=== PATIENT | male | born 1935 | race Caucasian/White ===

== ENCOUNTER 2016-11-22 12:07 | Observation (INO) ==
[2016-11-22 12:40] LABS: MANUAL DIFF NEEDED? NO
--- NOTE | 2016-11-22 12:47 | Diag Imaging Result Doc PS360 ---
EXAM: CHEST-PORTABLE HISTORY: stroke like symptoms TECHNIQUE: Erect AP portable at 1235 COMMENT: There is no appreciable change since previous study of 11/19/2015, although the left costophrenic angle is not included on the current study. IMPRESSION: Stable chest. Electronically signed by Jed Adams 11/22/2016 12:44 PM
[2016-11-22 12:48] LABS: BASO% 0.4 % (0.0-0.8); EOS# 0.36 X1000 (0.0-0.7); HEMATOCRIT 47.5 % (42.0-52.0); HEMOGLOBIN 15.7 g/dL (14.0-18.0); LYMPH% 16.6 % (20.5-51.1); MCH 31.4 PG (27-31); MCHC 33.1 g/dL (33-37); MONO# 0.73 X1000 (0.11-0.59); MONO% 10.1 % (1.7-9.3); MPV 9.9 FL (7.4-10.4); NEUT% 67.9 % (42.2-75.2); PLT 267 X1000 (130-400)
[2016-11-22 12:52] LABS: INR 1.13; PTT 29.1 Seconds (22.0-36.0)
[2016-11-22 13:02] LABS: AGAP 10; ALKALINE PHOSPHATASE 79 U/L (32-122); BUN 30 mg/dL (8-22); CALCIUM 9.9 mg/dL (8.8-10.2); CHLORIDE 104 mmol/L (98-107); COSMO 283; GOT 17 U/L (10-34); GPT 12 U/L (10-44); POTASSIUM 4.5 mmol/L (3.5-5.1); SODIUM 139 mmol/L (136-145); TCO2 25 mmol/L (25-35); TOTAL BILIRUBIN 1.11 mg/dL (0.20-1.00); TOTAL PROTEIN 6.8 g/dL (6.3-8.3)
[2016-11-22 13:19] LABS: URINE CULTURE NEEDED? NO; URINE MICRO REVIEW NEEDED? NO; URINE SOURCE CLEAN CATCH
[2016-11-22 13:28] LABS: BILIRUBIN URINE NEGATIVE (NEGATIVE); BLOOD URINE NEGATIVE (NEGATIVE); COLOR YELLOW; GLUCOSE URINE NEGATIVE (NEGATIVE); LEUKOCYTES URINE NEGATIVE (NEGATIVE); NITRITE URINE NEGATIVE (NEGATIVE); PH URINE 5.5; PROTEIN URINE 30 mg/dL (NEGATIVE); TURBIDITY URINE CLEAR (CLEAR); UR EPITHELIAL CELLS <10 /HPF (<10); URINE BACTERIA NEGATIVE /HPF; URINE RBC <10 /HPF (<10); URINE WBC <10 /HPF (<10); UROBILINOGEN URINE 2 mg/dL (NORMAL)
--- NOTE | 2016-11-22 13:29 | Diag Imaging Result Doc PS360 ---
EXAM: HEAD W/O CONTRAST HISTORY: stroke like symptoms TECHNIQUE: CT of the head without contrast COMMENT: There is dense calcification in the right vertebral artery and both internal carotid arteries. There is generalized cerebral and cerebellar atrophy. There are number of lacunar lesions present in the cerebellum particularly the left upper hemisphere where there is a lacunar lucency measuring excess of 2.5 cm. No evidence of mass effect bleed or abnormal extra-axial fluid collection is present. The visualized paranasal sinuses are clear. The calvarium is intact. IMPRESSION: Cerebral atrophy with old ischemic changes in the posterior fossa primarily. Further evaluation with MRI may be desirable. Electronically signed by Jed Adams 11/22/2016 1:27 PM
[2016-11-22 13:33] LABS: UR AMPHETAMINES QUAL NONE DETECTED (NONE DETECT); UR BARBITUATES QUAL NONE DETECTED (NONE DETECT); UR BENZODIAZEPIN QUAL NONE DETECTED (NONE DETECT); UR CANNABINOIDS QUAL NONE DETECTED (NONE DETECT); UR COCAINE QUAL NONE DETECTED (NONE DETECT); UR METHADONE QUAL NONE DETECTED (NONE DETECT); UR OPIATES QUAL NONE DETECTED (NONE DETECT); UR OXYCODONE QUAL NONE DETECTED (NONE DETECT); UR PCP QUAL NONE DETECTED (NONE DETECT)
--- NOTE | 2016-11-22 15:47 | PROVIDER DOCUMENTATION ---
This chart was entered by Attila Murray Scribe, acting as scribe for Chandan Miramontes MD. HPI-Neurological Disorder - General Chief Complaint: Stroke-Like Symptoms Stated Complaint: STROKE LIKE SX Time Seen by Provider: 11/22/16 14:51 Source: patient Allergies/Adverse Reactions: Patient Allergies Allergy/AdvReac Type Severity Reaction Status Date / Time promethazine HCl * Allergy Unknown Verified 11/19/15 10:35 [From Phenergan] Home Medications: Home Medication List Medication Instructions Recorded Confirmed Last Taken Type Furosemide [Lasix] 20 mg PO DAILY #20 tablet 11/19/15 11/22/16 11/21/16 07:00 Rx 20 MG Warfarin Sodium [Coumadin] 5 mg PO DAILY 11/19/15 11/22/16 11/21/16 07:00 History 5 MG - History of Present Illness-Neuro Nature of Presenting Problem: Patient is a 81 y/o M that presents to the ER after having an episode of left foot numbness and hand numbness. patient was driving and couldn't hit the brake. He had symptoms previously in which he had slurred speech. Symptoms are gone now. Severity: reports: moderate Onset/Duration: reports: abrupt, this afternoon Timing: reports: gone now Context: reports: paresthesia. denies: head injury, impaired speech, facial droop Character of Altered Mental Status: reports: N/A Character of Deficits: reports: new weakness New weakness or altered sensation location:: reports: LUE, LLE Gait Baseline: walks without assistance Associated Symptoms: reports: numbness in legs/feet. denies: headache, decreased ability to walk or stand, fever/chills, slurred speech, vomiting Similar Symptoms Previously?: Yes Recently seen or treated by another doctor?: No Review of Systems - Adult - REVIEW OF SYSTEMS - ADULT Constitutional: denies: chills, fever Eyes: reports: no symptoms reported Ears, Nose, Mouth & Throat: reports: no symptoms reported Cardiovascular: denies: chest pain, orthopnea, palpitations Respiratory: denies: cough, shortness of breath, wheezing Gastrointestinal: denies: abdominal pain, nausea, vomiting Genitourinary: reports: no symptoms reported Musculoskeletal: reports: no symptoms reported Integumentary: reports: no symptoms reported Neurological: reports: numbness, paresthesia. denies: dizziness/vertigo, headache/migraines, syncope Psychiatric: reports: no symptoms reported Endocrine: reports: no symptoms reported Hematologic/Lymphatic: reports: no symptoms reported Allergic/Immunologic: reports: no symptoms reported All Other Systems: Reviewed and Negative Past History - Adult - PAST MEDICAL HISTORY-ADULT Review of Records: reports: Old Records Reviewed, Nursing Assessment Review, Medications Reviewed Major Childhood Illnesses: reports: denies history Cardiovascular: reports: A-Fib, HTN Gastrointestinal: reports: GERD - PRIOR SURGERIES/PROCEDURES Surgical/Procedure History: reports: hernia repair, other (prostectomy) - IMMUNIZATION STATUS Childhood Immunizations: See Nurse Assessment Flu Vaccine: See Nurse Assessment - FAMILY HISTORY Family History: reviewed, not pertinent - SOCIAL HISTORY Smoking: quit greater than 1 year, cigarettes Living Situation: family Physical Exam- Neurological - Physical Exam-Neuro Initial Vital Signs Reviewed: Yes General Appearance: alert, no apparent distress Eye Exam: bilateral eye: normal inspection, PERRL HENMT: normocephalic/atraumatic, moist mucous membranes, normal ENT inspection Head Injury: no evidence of injury. 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: normal hearing, normal speech, PERRL Motor/Sensory: no motor deficit, no sensory deficit, no pronator drift Neurologic: transfer engineer II-XII nml as tested, no motor/sensory deficits Integumentary: normal color, normal turgor, warm/dry Psych/Mental Status: normal mood/affect, normal thought content, normal thought process, oriented x 3 - Glascow Coma Scale Best Eye Response: (4) open spontaneously Best Verbal Response: (5) oriented Best Motor Response: (6) obeys commands Total Glascow Score: 15 Progress - PLAN OF CARE/RESULTS Progress/Plan/Lab Results: Vital Signs - 8 hr 11/22/16 12:13 11/22/16 14:29 Pulse Rate 98 H 97 H Respiratory Rate 18 18 Blood Pressure 141/91 142/94 O2 Sat by Pulse Oximetry 98 97 Laboratory Results - last 24 hr 11/22/16 11/22/1617 12:28 12:28 12:28 WBC 7.25 RBC 5.00 Hgb 15.7 Hct 47.5 MCV 95.0 MCH 31.4 H MCHC 33.1 RDW Std Deviation 12.9 Plt Count 267 MPV 9.9 Neut % (Auto) 67.9 Lymph % (Auto) 16.6 L [place] % (Auto) 10.1 H Eos % (Auto) 5.0 Baso % (Auto) 0.4 Neut # (Auto) 4.93 Lymph # (Auto) 1.20 [place] # (Auto) 0.73 H Eos # (Auto) 0.36 Baso # (Auto) 0.03 PT 12.0 H INR 1.13 PTT (Actin FS) 29.1 Sodium 139 Potassium 4.5 Chloride 104 Carbon Dioxide 25 Anion Gap 10 BUN 30 H Creatinine 0.9 Estimated GFR/1.73 m2 > 60 BUN/Creatinine Ratio 33 Glucose 89 Calculated Osmolality 283 Calcium 9.9 Total Bilirubin 1.11 H AST 17 ALT 12 Alkaline Phosphatase 79 Troponin T Total Protein 6.8 Albumin 4.0 Globulin 2.8 Albumin/Globulin Ratio 1.4 Urine Source Urine Color Urine Turbidity Urine pH Ur Specific [place] Urine Protein Ur Glucose (Stick) Ur Ketones (Stick) Urine Blood Urine Nitrite Urine Bilirubin Urobilinogen Dipstick Urine Leukocytes Urine WBC (Auto) Urine RBC (Auto) U Epithel Cells (Auto) Urine Bacteria (Auto) Urine Opiates Screen Ur Oxycodone Screen Ur Methadone, Qual Ur Barbiturates Screen Ur Phencyclidine Scrn Ur Amphetamines Screen U Benzodiazepines Scrn Urine Cocaine Screen U Cannabinoids Screen 11/22/16 11/22/16 11/22/16 12:28 13:10 13:10 WBC RBC Hgb Hct MCV MCH MCHC RDW Std Deviation Plt Count MPV Neut % (Auto) Lymph % (Auto) [place] % (Auto) Eos % (Auto) Baso % (Auto) Neut # (Auto) Lymph # (Auto) [place] # (Auto) Eos # (Auto) Baso # (Auto) PT INR PTT (Actin FS) Sodium Potassium Chloride Carbon Dioxide Anion Gap BUN Creatinine Estimated GFR/1.73 m2 BUN/Creatinine Ratio Glucose Calculated Osmolality Calcium Total Bilirubin AST ALT Alkaline Phosphatase Troponin T < 0.010 Total Protein Albumin Globulin Albumin/Globulin Ratio Urine Source CLEAN CATCH Urine Color YELLOW Urine Turbidity CLEAR Urine pH 5.5 Ur Specific [place] 1.030 Urine Protein 30 A Ur Glucose (Stick) NEGATIVE Ur Ketones (Stick) NEGATIVE Urine Blood NEGATIVE Urine Nitrite NEGATIVE Urine Bilirubin NEGATIVE Urobilinogen Dipstick 2 A Urine Leukocytes NEGATIVE Urine WBC (Auto) <10 Urine RBC (Auto) <10 U Epithel Cells (Auto) <10 Urine Bacteria (Auto) NEGATIVE Urine Opiates Screen NONE DETECTED Ur Oxycodone Screen NONE DETECTED Ur Methadone, Qual NONE DETECTED Ur Barbiturates Screen NONE DETECTED Ur Phencyclidine Scrn NONE DETECTED Ur Amphetamines Screen NONE DETECTED U Benzodiazepines Scrn NONE DETECTED Urine Cocaine Screen NONE DETECTED U Cannabinoids Screen NONE DETECTED Orders Category Date Time Status Cardiac Monitoring DIRECTED Care 11/22/16 12:18 Active Finger Stick Blood Sugar (ED) DIRECTED Care 11/22/16 12:18 Active Misc. NRSG Communication Order DIRECTED Care 11/22/16 12:18 Active Saline Loc NOW Care 11/22/16 12:18 Active CHEST-PORTABLE [RAD] Stat Exams 11/22/16 12:18 Completed HEAD W/O CONTRAST [CT] Stat Exams 11/22/16 12:18 Completed CBC WITH ELECTRONIC DIFF [HEME] Stat Lab 11/22/16 12:28 Completed COMPREHENSIVE METABOLIC PANEL [CHEM] Stat Lab 11/22/16 12:28 Completed PROTIME WITH INR [COAG] Stat Lab 11/22/16 12:28 Completed PTT [COAG] Stat Lab 11/22/16 12:28 Completed TROPONIN T Stat Lab 11/22/16 12:28 Completed URINALYSIS W/POSS RFLX CULT-1 [URINALYSIS] Stat Lab 11/22/16 13:10 Completed URINE DRUG SCREEN Stat Lab 11/22/16 13:10 Completed EKG [EKG] Stat Ther 11/22/16 12:18 Ordered Result Diagrams: 11/22/16 12:28 11/22/16 12:28 - XRAY 1 XRAY Study: Chest Impression: Abnormal XRAY Interpretation: stable - CT/MRI 1 CT Study: Head Impression: Abnormal CT Results: cerebral atrophy with old ischemic changes, - CONSULTS/PCP/HOSPITALIST Notification #1 *Consult/PCP/Hospitalist*: Time Discussed: 15:44 Reason/Comments: TIA Consult Disposition: Will see in ED, Admit Departure - Departure Date of Disposition Decision: 11/22/16 Time of Disposition Decision: 15:44 DIAGNOSIS: TIA (transient ischemic attack) Disposition: ADMITTED INPATIENT 09 Certified Medical Emergency: Emergent Condition: Stable Referrals and Follow-Ups: Chano Darling MD [Primary Care Provider] - - Critical Care Note This patient required my direct & personal management of CC.: No This chart was documented by the indicated scribe, (Attila Murray, Scribe) and accurately reflects the services I performed and decisions made by me, Chandan Miramontes MD, as attested by the provider's signature.
--- NOTE | 2016-11-22 16:35 | ED EKG INTERP ---
This chart was entered by Attila Murray Scribe, acting as scribe for Juan C Alvarado MD. EKG Interpretation - EKG Time of EKG reading by physician:: 16:25 EKG Read and Signed by:: Juan C Alvarado EKG Interpretation (*Must complete 3 of following elements*): Abnormal Rate: 80 Rhythm: a-fib with frequent ventricular paced complexes QRS: normal ST Wave: non-specific ST changes This chart was documented by the indicated scribe, (Attila Murray Scribe) and accurately reflects the services I performed and decisions made by me, Juan C Alvarado MD, as attested by the provider's signature.
--- NOTE | 2016-11-22 20:06 | HISTORY AND PHYSICAL ---
PRIMARY CARE PHYSICIAN: Chano Darling MD CHIEF COMPLAINT: Left-sided weakness. HISTORY OF PRESENT ILLNESS: Mr. Golden is a very pleasant 81-year-old male with a history of chronic atrial fibrillation on Coumadin therapy who presents to the ER with acute onset of left- sided weakness. He was driving his car and was unable to push on the brake with his left foot (patient uses his left foot to brake). He was eventually able to lift his leg up and place it on the brake and depress the brake. He then tried to get out of his car and had left arm weakness and had a difficult time opening the door. He came to the ER afterwards, a head CT was done, which showed chronic changes, but nothing acute. MRI is unable to be done secondary to pacemaker. Laboratory data was unrevealing, and his EKG showed paced rhythm with underlying atrial fibrillation. He denies any other symptoms, he reports the symptoms resolved in about 4 hours. Currently, he is awake, alert and oriented without focal deficits. He is now going to be admitted for observation status. PAST MEDICAL HISTORY: 1. Chronic atrial fibrillation on Coumadin therapy. 2. Status post pacemaker. 3. Systolic congestive heart failure, review of echo in January 2016 shows EF of 30 to 40% with global hypokinesis and moderate to severe MR. There were also elevated pulmonary artery pressures. PAST SURGICAL HISTORY: He has had a pacemaker placement, hiatal hernia repair, cataract removal. SOCIAL HISTORY: Patient quit smoking 50 years ago. He drinks a glass a wine a night and denies drug use. He is retired. Family is at the bedside. FAMILY HISTORY: Noncontributory. REVIEW OF SYSTEMS: Patient has been complaining of diarrhea since he started taking Coumadin, this has been going on for multiple years, he has even discussed it with Dr. Raza, his disk operator about switching to Eliquis. Other than that, a 14 point review of systems was obtained and found to be negative with the exception of the HPI. ALLERGIES: Phenergan. HOME MEDICATIONS: Lasix 20 mg daily. Coumadin 5 mg daily. Of note the patient reports she has not taken his Coumadin the past 3 or 4 days because of the side effects. PHYSICAL EXAMINATION: VITAL SIGNS: Blood pressure is 144/78, heart rate is 81, respiratory rate 18, O2 saturation 100% on room air. Temperature is 97.2 degrees. GENERAL: This is an elderly 81-year-old male lying in a hospital bed in no acute distress. NEUROLOGIC: The patient is awake, alert, and oriented. He follows commands without focal deficits. HEENT: Head is atraumatic and normocephalic. His pupils are equal, round, reactive to light. Oral mucosa is moist. Trachea is midline. There is no JVD. CHEST: Clear to auscultation bilaterally. CARDIOVASCULAR: Irregular rate and rhythm. S1-S2 is noted. Diastolic murmur is also noted. GI: Soft, nondistended, nontender. Bowel sounds are active. EXTREMITIES: No edema, clubbing or cyanosis. Pulses diminished bilaterally. DIAGNOSTIC DATA: Head CT shows chronic cerebral atrophy with old ischemic changes in the posterior fossa primarily. Further evaluation with MRI may be desirable. Chest x-ray does not show anything acute. EKG: Paced rhythm with underlying atrial fibrillation. Lab work: WBC 7.25, hemoglobin 15.7, hematocrit 47.5, platelet count 267,000. INR 1.13, sodium 139, potassium 4.5, chloride 104, CO2 25, anion gap 10, BUN 30, creatinine 0.9, glucose 89, total bilirubin 1.11, AST 17, ALT 12, alkaline phosphatase 79, troponin negative. UA is negative. Toxicology screen is negative. ASSESSMENT AND PLAN: 1. Transient ischemic attack: The patient symptoms are most consistent with transient ischemic attack as his symptoms have resolved. We are going to check an echocardiogram, carotid ultrasound. Place him on a baby aspirin, monitor neurologic checks and consult with Dr. Walton in the morning. Apparently, the patient is intolerant to statins per his report. So we will hold off on a statin for now. 2. Systolic congestive heart failure: Does not seem to be in exacerbation at this time. He is euvolemic, but his last EF was 30-40% with moderate to severe mitral regurgitation. We will check another echocardiogram, follow strict input and output and daily weights. He is not optimized on congestive heart failure medications and will need to have this addressed, likely on an outpatient basis. 3. Chronic atrial fibrillation: Patient is subtherapeutic with his international normalized ratio. We are going to continue his Coumadin as he has not been taking it the past few days and have him follow up with Dr. Raza, his disk operator regarding switching to Eliquis. 4. Deep venous thrombosis prophylaxis provided with his Coumadin. Further recommendations to follow. Dictated by HILARIO Patrick for Yoni Brito MD cc: HILARIO Patrick MD [facility]
[2016-11-23 06:39] LABS: HEMOGLOBIN 14.8 g/dL (14.0-18.0); MCH 31.4 PG (27-31); MCHC 32.9 g/dL (33-37); MCV 95.5 FL (81-99); MPV 9.9 FL (7.4-10.4); RBC 4.71 XMIL (4.7-6.1)
[2016-11-23 06:47] LABS: AGAP 10; BUN 24 mg/dL (8-22); CALCIUM 9.4 mg/dL (8.8-10.2); CHLORIDE 104 mmol/L (98-107); COSMO 283; MAGNESIUM 1.8 mg/dL (1.5-2.7); POTASSIUM 4.5 mmol/L (3.5-5.1); SODIUM 140 mmol/L (136-145); TCO2 26 mmol/L (25-35)
[2016-11-23 07:33] VITALS: BP 142/85
[2016-11-23] MEDS ORDERED: LASIX PO SCH (09:00)
[2016-11-23] MEDS ORDERED: ASPIRIN PO SCH (09:00)
[2016-11-23 12:10] LABS: HEMOGLOBIN A1C 5.4 % (4.8-6.0)
--- NOTE | 2016-11-23 13:04 | ECHO REPORT ---
ORDER DATE: 11/22/2016 INDICATION: TIA, atrial fibrillation, history of heart failure. FINDINGS: 1. Right atrium is mildly enlarged at 4.9 cm. Linear artifact consistent with device leads as noted in the right heart chambers. 2. Mild to moderate tricuspid regurgitation. The RV systolic pressure is 41. 3. Normal RV size and systolic function. 4. Mild pulmonic insufficiency. 5. Moderate to severe left atrial enlargement at 5.9 cm. 6. No mitral prolapse. Mild to moderate mitral regurgitation. 7. Normal LV size, end-diastolic dimension of 5.2. Mild left ventricular hypertrophy with a posterior and interventricular septal wall thickness of 1.1 and 1.3 cm respectively. Severely reduced LV systolic function with an estimated EF of 30% to 35%. Global hypokinesis is present. 8. Aortic valve opens well trileaflet. Mild aortic insufficiency. No evidence of stenosis. 9. The aorta does appear to be somewhat enlarged at the root with a dimension of 4 cm. 10. No pericardial effusion seen. cc: MD Isaac Wetzel CRNP
[2016-11-23] MEDS ORDERED: COZAAR PO SCH (13:30)
[2016-11-23] MEDS ORDERED: TOPROL XL PO SCH ×2 (13:30)
--- NOTE | 2016-11-23 13:59 | CONSULTATION ---
DATE OF CONSULTATION: 11/23/2016 REASON FOR CONSULTATION: Cardiology was consulted for adjusting medications, new LV dysfunction. Patient with a CVA. HISTORY OF PRESENT ILLNESS: Mr. Golden is an 81-year-old gentleman with a history of chronic atrial fibrillation on Coumadin therapy, who presented to the emergency room with acute onset left-sided weakness. He was driving his car, was unable to push on the brake with his left foot and eventually he was able to stop the car. He tried to get out of the car any had left- sided numbness and difficulty opening the door. He came to the emergency room. CT scan was done which showed chronic changes. Patient states that for the last 3 days he had not been taking his Coumadin and he had stopped his other medications for atrial fibrillation as he has been having chronic diarrhea. He denies chest pain. There are no palpitations. There is no syncope. REVIEW OF SYSTEMS: A 14 point review of system was done. GI System: As above. In addition, there is no history of hematemesis or melena. Central nervous system: No focal weakness to suggest a CVA or TIA. Genitourinary: There is no dysuria or hematuria. Endocrine: Stable. HOME MEDICATIONS: Lasix 40, Coumadin 5. Patient reports he has not been taking his Coumadin for the last 3-4 days because of chronic side effects. PAST MEDICAL HISTORY: 1. Chronic atrial fibrillation status post permanent pacemaker implantation. 2. New LV dysfunction. Ejection fraction in 2016 was 30 to 40% with mitral regurgitation. PHYSICAL EXAMINATION: Vital signs: Blood pressure was 144/78. Cardiovascular System: Normal jugular venous pressure. There is no thyromegaly. No carotid bruit. First and second heart sounds were heard. There is no S3 gallop. Respiratory System: Normal air entry. There are no crepitations or rhonchi. Abdomen: Soft, nontender. There was no guarding or rigidity. Bowel sounds were heard. Extremities: Reveal no pedal edema. Central nervous system: Alert and oriented. Was moving all 4 extremities. Detailed central nervous system examination not performed. ASSESSMENT AND PLAN: Mr. Leodan Golden is an 81-year-old male with a history of permanent pacemaker and chronic atrial fibrillation, has LV dysfunction by recent echocardiogram. He had stopped taking his medications of Coumadin for the last 3 days and other medications which he was on Cardizem. Will make the following changes to his medications. 1. As far as anticoagulation therapy is concerned, he has come in with a stroke and he needs to be anticoagulated. Does not want to be on Coumadin. We will put him on Xarelto 20 mg a day. 2. For his atrial fibrillation which is chronic, he had problems with Cardizem also probably so we will put him on Toprol-XL 50 mg a day. 3. We will also start him on NYDIA inhibitors given his LV dysfunction and Cozaar. We will make follow-up appointments to see Dr. Raza in the clinic shortly. Thank you for the consult. cc: Dinesh Johnson MD
--- NOTE | 2016-11-23 16:02 | CONSULTATION ---
DATE OF CONSULTATION: 11/23/2016 REASON FOR CONSULTATION: The patient is seen in consultation at the request of Yoni Collins MD for evaluation of stroke. HISTORY OF PRESENT ILLNESS: Patient is an 81-year-old, right-handed male with history of atrial fibrillation, on Coumadin, who was admitted with TIA. Yesterday he was driving down the street and had acute onset of left hemiparesis. Possibly some subtle numbness of the left hand and slurred speech. No headache, visual changes, dizziness, chest pain, shortness of breath. He was brought to the emergency room by friends, and his symptoms mostly resolved after 2 hours and definitely resolved completely after 3 hours[address] A [address] head CT did not show any acute findings. Of note, he has atrial fibrillation and has been on Coumadin therapy for about 10 years, although his reports he has not tolerated this medication due to diarrhea and general ill feeling. He has asked to switch to Eliquis if this is possible. He also reports that he had not been taking the Coumadin for a few days prior to the current event. PAST MEDICAL HISTORY: Atrial fibrillation on Coumadin therapy, pacemaker, congestive heart failure, hiatal hernia repair, cataract surgery. SOCIAL HISTORY: Previous smoker. Glass of wine a night. No illicit drug use. 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 He is and has 1 adopted son who lives across the street. FAMILY HISTORY: Noncontributory. ALLERGIES: Phenergan. CURRENT MEDICATIONS: Reviewed. Lasix. Coumadin 5 mg daily. Aspirin 81 mg daily started on admission. REVIEW OF SYSTEMS: Balance of 12 was conducted and is otherwise negative except that detailed in the HPI. PHYSICAL EXAMINATION: Blood pressure 142/85, pulse 79, respirations 20, afebrile on room air. He is an elderly male sitting up in bed, in no acute distress. He is very pleasant and cooperative. Neck: Supple. CV: Pulses are intact. Skin: Warm, dry, and intact. Abdomen: Soft, nontender, nondistended. HEENT: Moist mucous membranes. Normocephalic, atraumatic. Sclerae are anicteric. No redness. Neurologic: He is awake, alert, fully oriented. Speech is fluent. No dysarthria. Attention and concentration are intact. He is appropriately conversant. PERRL. Conjugate gaze. Ocular movements full. Slight flattening of left nasolabial fold. Facial sensation intact. Tongue protrudes midline. Palate elevates symmetrically. Shoulder shrug is full. No pronator drift. Strength is intact with the exception of some very subtle weakness of the left deltoid. Sensation is intact as tested. No evidence of incoordination. Reflexes are diminished throughout. Toes are mute. No clonus. DIAGNOSTICS: Noncontrasted head CT was personally reviewed. There are no acute findings. There is some generalized atrophy noted and some old ischemic changes. LABORATORY: Reviewed. BUN 24, creatinine 1. LFTs are not elevated. Triglycerides 74, total cholesterol 174, LDL 138. HDL 38. B12 of 110. TSH 1.98. Free T4 1.04. INR 1.13. PT 12. Toxicology negative. ASSESSMENT AND PLAN: An 81-year-old, right-handed male with atrial fibrillation and subtherapeutic INR on Coumadin therapy who presented with transient left hemiparesis and possible sensory loss, as well as dysarthria, now resolved. 1. TIA. Symptoms are resolved per the patient though I do find some subtle left deltoid weakness on exam and perhaps some very subtle flattening of the left nasolabial fold. With ischemic event in the setting of atrial fibrillation, the patient should be on anticoagulation therapy. He states that he does not tolerate the Coumadin therapy and is hoping to switch to possibly Eliquis. I think that is reasonable. He does not have coronary disease and does not need to be on both an aspirin and anticoagulation. His cholesterol is above 100 and in the setting of ischemic stroke would indicate high potency statin therapy, although he reports he does not tolerate statins and has tried several in the past. I explained that it is generally recommended to be on a high potency statin with ischemic event in the setting of LDL greater than 100, but I also told him that it is possible he could try a lower potency statin or higher potency statin alternating days or maybe even twice a week to see if he would tolerate it. A reasonable goal blood pressure for him would be less than 140/90. I believe he has gone for carotid Dopplers and an echocardiogram already this morning and those results are pending. Thank you for this consultation. cc: Tesha Saunders MD [facility]ENTER[facility]in[facility]
[2016-11-23] MEDS ORDERED: XARELTO PO SCH (17:00)
[2016-11-23] MEDS ORDERED: LIPITOR PO SCH (21:00)
[2016-11-23] MEDS ORDERED: COUMADIN PO SCH (21:00)
--- NOTE | 2016-11-24 08:50 | DISCHARGE SUMMARY ---
ADMISSION DATE: 11/22/2016 DISCHARGE DATE: 11/23/2016 DISCHARGE DIAGNOSES: 1. Transient ischemic attack. 2. Systolic congestive heart failure with an ejection fraction of 30-35%. 3. Chronic atrial fibrillation with chronic anticoagulation. CONSULTS: Neurology department and Cardiology department. HOSPITAL COURSE: An 81-year-old, male with a past medical history of atrial fibrillation on Coumadin therapy, who presents to the emergency department with acute onset of left-sided weakness. Apparently, he was driving his car and was unable to push on the break with his left foot. He was eventually able to lift his leg up and place it on the brake and press the brake. Then he tried to get out of his car and had left arm weakness. Of course, problem opening the door. He came to the emergency department after these episodes. We had a CT scan done that did not show any abnormality. We were not able to perform an MRI because this patient has a pacemaker. Laboratory data was unrevealing. EKG showed paced rhythm with underlying atrial fibrillation. He denies other symptoms. He was admitted to the medical floor with telemetry. All his symptoms were resolved at the moment of my evaluation yesterday. No new events overnight. Neurology department evaluated this patient and they just recommended to continue with anticoagulation. Then, Cardiology department evaluated this patient. They did an echocardiogram, will do a carotid ultrasound. They adjusted his medications. They switched warfarin for Xarelto. Also, they placed this patient on metoprolol succinate 50 mg p.o. daily, losartan 25 mg p.o. daily, furosemide 20 mg p.o. daily. Also, because this patient had a TIA, I will place this patient on Lipitor 40 mg p.o. daily. The patient was instructed to follow up with his primary doctor in [address] Raza in 2 weeks. Also, he was instructed that in case of any other events, he can come to the emergency department. This patient's symptoms are resolved. He is doing fine. He is ambulating and tolerating p.o., this is why I decided to discharge this patient with strict followup by his primary care doctor and Cardiology. PHYSICAL EXAM: Vital Signs: Temperature 97.4, pulse 79, respiratory rate 20, blood pressure 142/85, oxygen saturation 98 on room air. HEENT: Head normocephalic. No trauma. PERRLA. Neck: Supple. No JVD. No masses. Central trachea. Chest: Clear to auscultation. No wheezing. No rales. Cardiovascular: Irregularly irregular rate and rhythm. Abdomen: Soft, nontender, nondistended. No hepatosplenomegaly. Extremities: No edema. No clubbing. No cyanosis. Neurological examination: The patient is completely alert and oriented x3. No focal deficits. LABORATORY: WBC 6.8, hemoglobin 14.8, hematocrit 45, platelets 252. Sodium 140, potassium 4.5, chloride 104, bicarbonate 26, BUN 24, creatinine 1, glucose 98, calcium 9.4. DISCHARGE MEDICATIONS: Xarelto 20 mg p.o. with supper, Toprol-XL 50 mg p.o. daily, losartan 25 mg p.o. daily. Furosemide 20 mg p.o. daily, atorvastatin 40 mg p.o. at bedtime. TIME SPENT: Time discharging this patient 35 minutes. cc: Yoni Brito MD
--- NOTE | 2016-11-26 14:13 | EKG Report ---
Test Performed on : 11/22/2016 4:25:40 PM Test Reason : Stroke like symptoms Blood Pressure : / mmHG Vent. Rate : 080 BPM Atrial Rate : 394 BPM P-R Int : 000 ms QRS Dur : 098 ms QT Int : 368 ms P-R-T Axes : 000 009 -65 degrees QTc Int : 424 ms Atrial fibrillation. with frequent ventricular-paced complexes Septal infarct , age undetermined ST \T\ T wave abnormality, consider inferolateral ischemia Abnormal ECG When compared with ECG of 19-NOV-2015 09:50, Vent. rate has decreased BY 19 BPM Unconfirmed Result
--- NOTE | 2016-11-29 09:58 | Carotid Study ---
DATE: 11/22/2016 PROCEDURE: Carotid duplex imaging. REFERRING PHYSICIAN: INTERPRETING PHYSICIAN: Dr. Milner TECH: INDICATIONS: The patient complains of dysphagia and unilateral weakness, consistent with a TIA. OBSERVED DATA RIGHT LEFT Brachial Blood Pressure Carotid Pulse Bruits: Carotid/Sub DIAGRAM OF ULTRASOUND IMAGING R L RIGHT INT EXT INT EXT LEFT Isidro (cm/s) Isidro (cm/s) Subclavian 112/1 Subclavian 126/0 CCA Proximal 51/6 CCA Proximal 48/11 CCA Distal 39/0 CCA Distal 46/13 Bulb 29/0 Bulb 108/15 ICA Proximal 34/7 ICA Proximal 122/26 ICA Mid 26/6 ICA Mid 98/27 ICA Distal 19/4 ICA Distal 39/12 ECA 116/0 ECA 111/0 Vertebral 47/11 A Vertebral 43/10 A ICA/CCA Ratio 0.7 ICA/CCA Ratio 2.5 % Stenosis 0 to 39 % Stenosis 40 to 59 FINDINGS: There is calcific plaque that is irregular in the right bulb, the left bulb and the proximal left internal. PHYSICIAN INTERPRETATION: Irregular heterogeneous plaque in both carotid bulbs and the takeoff of the left internal. It does not yet produce a stenosis of hemodynamic consequence but is certainly irregular and could be a source of emboli. There is antegrade vertebral flow bilaterally. cc: MD Isaac Villa CRNP MTDD
== END 2016-11-23 15:34 | disposition home or self-care (01) ==
LOC: ED 12:07 → INTOOBSV 16:25 → 3N 16:25
PROVIDERS: ATTEND Internal Medicine

== ENCOUNTER 2019-01-05 11:13 | Inpatient (IN) ==
[2019-01-05] MEDS ORDERED: PROTONIX IV ONE (11:30)
[2019-01-05] MEDS ORDERED: SODIUM CHLORIDE 0.9% INJ ONE (11:30)
--- NOTE | 2019-01-05 11:30 | PROVIDER DOCUMENTATION ---
HPI-General Adult - General Chief Complaint: GI Bleed Stated Complaint: DIZZINESS/BLOOD IN STOOL Time Seen by Provider: 01/05/19 11:19 Source: patient Allergies/Adverse Reactions: Patient Allergies Allergy/AdvReac Type Severity Reaction Status Date / Time promethazine HCl * Allergy Unknown Verified 12/27/16 18:28 [From Phenergan] Home Medications: Home Medication List Medication Instructions Recorded Confirmed Last Taken Type Rivaroxaban [Xarelto] 20 mg PO WSUPPER tablet 01/04/17 01/05/19 01/03/19 Rx Ezetimibe [Zetia] 1 tab PO QHS 01/05/19 01/05/19 01/03/19 History Metoprolol Tartrate 1 tab PO DAILY 01/05/19 01/05/19 01/03/19 History - History of Present Illness -Gen Adult Nature of Presenting Problems: Pt. is 83 yom that presents with c/o dizziness and blood in his stool for 10 days. He is brought in by EMS. He denies any other complaints. Location of Pain/Injury: reports: none. denies: head, face, mouth, neck, chest, upper extremity, hand(s), abdomen, back, pelvis, genitalia, lower extremity, feet, upper body, lower body, generalized, other Pain Radiation: reports: no radiation. denies: arm(s), back, buttocks, chest, epigastric, feet, groin, jaw, flank (L), legs (lower), LLQ, LUQ, neck, periumbilical, flank (R), RLQ, RUQ, shoulder(s), scapula, scrotal, sternal notch, suprapubic, legs (upper), urethral, vaginal, other Quality of Pain: reports: none. denies: aching, pressure, tightness Severity: reports: moderate. denies: mild, severe Onset/Duration: reports: gradual, other (10 days) Timing: reports: still present. denies: improving, intermittent, getting worse Context/Activities at Onset: reports: none. denies: light activity, moderate activity, vigorous activity, recent emotional stress, recent physical stress, recent trauma history, possible bad food, cold exposure, eating, out of country travel, rest, sleep, sexual activity, other Modifying Factors: improves with: nothing Associated Symptoms: reports: dizziness, other (Blood in stool). denies: denies symptoms, anxiety, arm pain, back/neck pain, chest pain, constipation, cough, diaphoresis, diarrhea, EENT symptoms, fatigue, fever/chills, genitourinary problems, headaches, heartburn, joint pain, loss of appetite, malaise, muscle aches, sinus congestion/drainage, nausea, rash, seizure, shortness of breath, sensory/motor loss, pain with inspiration, swelling/mass in abdomen, syncope, vomiting, weakness, trouble walking Similar Symptoms Previously?: Yes Recently seen or treated by another doctor?: No Review of Systems - Adult - REVIEW OF SYSTEMS - ADULT Constitutional: reports: no symptoms reported Eyes: reports: no symptoms reported Ears, Nose, Mouth & Throat: reports: no symptoms reported Cardiovascular: reports: no symptoms reported Respiratory: reports: no symptoms reported Gastrointestinal: reports: see HPI, rectal bleeding. denies: hematemesis, frequent heartburn, vomiting Genitourinary: reports: no symptoms reported Musculoskeletal: reports: no symptoms reported Integumentary: reports: no symptoms reported Neurological: reports: see HPI, dizziness/vertigo. denies: numbness, seizure, syncope Psychiatric: reports: no symptoms reported Past History - Adult - PAST MEDICAL HISTORY-ADULT Review of Records: reports: Old Records Reviewed, Nursing Assessment Review, Medications Reviewed, Social history reviewed & non-contributory. Major Childhood Illnesses: reports: denies history Cardiovascular: reports: A-Fib, HTN, pacemaker Respiratory: reports: denies history Gastrointestinal: reports: GERD Obstetrical/Gynecological: reports: denies history Genitourinary: reports: denies history Musculoskeletal: reports: denies history Neurological: reports: TIA Endocrine/Immune: reports: denies history Other Conditions: reports: denies history - PRIOR SURGERIES/PROCEDURES Surgical/Procedure History: reports: hernia repair, other (prostectomy) - IMMUNIZATION STATUS Childhood Immunizations: See Nurse Assessment Flu Vaccine: See Nurse Assessment - FAMILY HISTORY Family History: reviewed, not pertinent - SOCIAL HISTORY Smoking: non-smoker Physical Exam-General - PHYSICAL EXAM-ADULT Initial Vital Signs Reviewed: Yes - CONSTITUTIONAL General Appearance: alert, no apparent distress. negative: anxious, slow to respond, obtunded, combative - EYES Eyes: PERRL/EOMI, pink conjunctivae - HEAD, EARS, NOSE, MOUTH & THROAT HENMT: normocephalic/atraumatic, moist mucous membranes - NECK Neck: non-tender, full range of motion, supple, normal inspection - RESPIRATORY Respiratory: lungs clear, normal breath sounds - CARDIOVASCULAR Cardiovascular: normal peripheral pulses, no edema - GASTROINTESTINAL (ABDOMEN) Abdominal Exam: normal bowel sounds, non tender, soft - GENITOURINARY Male Genitalia: deferred Rectal Exam: normal rectal tone, black stool. negative: decreased tone, hemorrhoids, tenderness Hemoccult Exam: heme positive stool - LYMPHATIC Lymphatic: no adenopathy - MUSCULOSKELETAL Back Exam: normal inspection, no CVA tenderness, no vertebral tenderness Extremity: normal range of motion, non-tender, normal inspection Peripheral Pulses: radial (R): 2+, radial (L): 2+ - SKIN Integumentary: normal color, normal turgor, warm/dry - NEUROLOGIC Neurologic: grossly normal, no motor/sensory deficits - PSYCHIATRIC Psych/Mental Status: normal mood/affect, normal thought content, normal thought process, oriented x 3. negative: anxious, paranoid, tearful Progress - PLAN OF CARE/RESULTS Progress/Plan/Lab Results: Orders Category Date Time Status Saline Loc NOW Care 01/05/19 11:20 Active CHEST-PORTABLE [RAD] Stat Exams 01/05/19 11:21 Ordered CBC WITH ELECTRONIC DIFF [HEME] Stat Lab 01/05/19 11:20 Uncollected CK PROFILE [SP CHEM] Stat Lab 01/05/19 11:20 Uncollected COMPREHENSIVE METABOLIC PANEL [CHEM] Stat Lab 01/05/19 11:20 Uncollected OCCULT BLOOD SCREENING [STOOL] Stat Lab 01/05/19 11:21 Uncollected PRO B-NATRIURETIC PEPTIDE Stat Lab 01/05/19 11:20 Ordered PROTIME WITH INR [COAG] Stat Lab 01/05/19 11:20 Uncollected PTT [COAG] Stat Lab 01/05/19 11:20 Uncollected TROPONIN T Stat Lab 01/05/19 11:20 Uncollected URINALYSIS W/POSS RFLX CULT [URINALYSIS] Stat Lab 01/05/19 11:20 Uncollected EKG [EKG] Stat Ther 01/05/19 11:20 Ordered Result Diagrams: 01/05/19 11:46 01/05/19 11:46 - XRAY 1 XRAY Study: Chest ([facility] - [address], [address], [place] [address] [facility] - [address] [place] [address] Department of Imaging Patient: SUMMER PADILLA OADM Date: 01/05/19#: [id number] : 5ADM Status: PRE ERAcct#: [id number] Age/Sex: 83/MRoom/Bed: Loc: ED Ordering Physician: Esau Ybarra Family Physician: Thiago Tang MD Reason for Procedure: weakness Signed CHEST-PORTABLE - 01/05/2019 INDICATION: weakness COMPARISON: 12/30/2016 FINDINGS: Stable pacemaker. There is borderline cardiomegaly. Pulmonary vascularity is normal. There is probably some mild interstitial pulmonary fibrosis or scarring in the lateral costophrenic angles stable from prior exams. No infiltrates or edema. IMPRESSION: Cardiomegaly. Probable mild pulmonary fibrosis. Electronically signed by Rafael Phillips 01/05/2019 11:41 AM 01/05/19 1141 Interpreting Physician: Rafael Phillips MD Dictated Date/Time: 01/05/19 1138 cc: Esau Ybarra; Thiago Tang MD) XRAY Interpretation: See note - CONSULTS/PCP/HOSPITALIST Notification #1 *Consult/PCP/Hospitalist*: Dr. Stinson Time Discussed: 13:22 Reason/Comments: Consult Consult Disposition: Will see in ED #2 Consult: Maria Ines Rivas Time Discussed: 13:46 Reason/Comments: Admission Consult Disposition: Will see in ED, Admit Departure - Departure Date of Disposition Decision: 01/05/19 Time of Disposition Decision: 13:05 DIAGNOSIS: GI bleed Qualifiers: GI bleed type/associated pathology: unspecified gastrointestinal hemorrhage type Qualified Code(s): K92.2 - Gastrointestinal hemorrhage, unspecified Disposition: ADMITTED INPATIENT 09 Certified Medical Emergency: Emergent Condition: Stable Referrals and Follow-Ups: Thiago Tang MD [Primary Care Provider] - - Critical Care Note This patient required my direct & personal management of CC.: Yes Total Time (mins): 36 Critical Care Statement: This patient required my direct personal management to treat or rule out processes, the absence of which, could potentiallly result in sudden, clinically significant life or limb threatening deterioration. Attestation - Physician/ LAYLA Attestation Patient care was provided by Advanced Practice Provider:: Yes Advanced Practice Provider:: Esau Ybarra Advanced Practice Provider documentation review:: The Mid-level provider bhavesh hooks, treatment plan and medical decision making was reviewed by the physician who agrees with all treatment and medical decision making by the MLP. The physician spent face to face time with patient:: No Advanced Practice Provider documentation review:: Supervising physician onsite and consulted in the evaluation and care of this patient. The physician did not have a face to face encounter with the patient.
--- NOTE | 2019-01-05 11:43 | Diag Imaging Result Doc PS360 ---
CHEST-PORTABLE - 01/05/2019 INDICATION: weakness COMPARISON: 12/30/2016 FINDINGS: Stable pacemaker. There is borderline cardiomegaly. Pulmonary vascularity is normal. There is probably some mild interstitial pulmonary fibrosis or scarring in the lateral costophrenic angles stable from prior exams. No infiltrates or edema. IMPRESSION: Cardiomegaly. Probable mild pulmonary fibrosis. Electronically signed by Rafael Phillips 01/05/2019 11:41 AM
[2019-01-05 12:54] LABS: BASO# 0.04 X1000 (0.0-0.2); BASO% 0.5 % (0.0-0.8); EOS# 0.07 X1000 (0.0-0.7); EOS% 0.9 % (0.0-10.0); HEMATOCRIT 26.4 % (42.0-52.0); HEMOGLOBIN 8.7 g/dL (14.0-18.0); IMM GRAN# 0.02 X1000 (0.0-0.04); IMM GRAN% 0.2 % (0.0-0.5); LYMPH# 0.55 X1000 (1.2-3.4); LYMPH% 6.8 % (20.5-51.1); MCH 31.1 PG (27-31); MCV 94.3 FL (81-99); MONO# 0.44 X1000 (0.11-0.59); MONO% 5.5 % (1.7-9.3); MPV 9.5 FL (7.4-10.4); NEUT# 6.91 X1000 (1.4-6.5); NEUT% 86.1 % (42.2-75.2); PLT 384 X1000 (130-400); RDW 12.3 % (11.5-14.5); WBC 8.03 X1000 (4.8-10.8)
[2019-01-05 13:03] LABS: AGAP 13; ALB/GLOB RATIO 1.7; ALBUMIN 3.4 g/dL (3.5-5.0); ALKALINE PHOSPHATASE 67 U/L (32-122); BUN 25 mg/dL (8-22); CALCIUM 10.1 mg/dL (8.8-10.2); CHLORIDE 107 mmol/L (98-107); CK PROFILE 46 U/L (24-204); COSMO 288; CREATININE 1.1 mg/dL (0.7-1.2); ESTIMATED GFR > 60; GLUCOSE 137 mg/dL (70-104); GOT 16 U/L (10-34); GPT 9 U/L (10-44); POTASSIUM 4.8 mmol/L (3.5-5.1); SODIUM 141 mmol/L (136-145); TCO2 21 mmol/L (25-35); TOTAL BILIRUBIN 0.49 mg/dL (0.20-1.00); TOTAL PROTEIN 5.4 g/dL (6.3-8.3)
[2019-01-05 13:14] LABS: INR 3.02; PROTIME 32.2 Seconds (11.0-16.0)
[2019-01-05 14:01] LABS: URINE SOURCE CLEAN CATCH
[2019-01-05 14:04] LABS: BILIRUBIN URINE NEGATIVE (NEGATIVE); BLOOD URINE NEGATIVE (NEGATIVE); COLOR YELLOW; GLUCOSE URINE NEGATIVE (NEGATIVE); KETONE URINE NEGATIVE (NEGATIVE); LEUKOCYTES URINE NEGATIVE (NEGATIVE); NITRITE URINE NEGATIVE (NEGATIVE); PH URINE 5.5; PROTEIN URINE TRACE mg/dL (NEGATIVE); SP GRAVITY URINE 1.026; TURBIDITY URINE HAZY (CLEAR); UROBILINOGEN URINE NORMAL (NORMAL)
[2019-01-05 14:06] LABS: UR EPITHELIAL CELLS <10 /HPF (<10); URINE BACTERIA NEGATIVE /HPF; URINE RBC <10 /HPF (<10); URINE WBC <10 /HPF (<10)
[2019-01-05 14:11] LABS: URINE CRYSTALS CA OXALATE PRESENT
[2019-01-05] MEDS ORDERED: VITAMIN K 10 MG in NS 50 ML IV SCH (14:45)
[2019-01-05] MEDS: PROTONIX 80 MG in NS 80 ML IV SCH (14:48)
[2019-01-05] MEDS ORDERED: ZOFRAN IV PRN (15:22)
[2019-01-05] MEDS: VITAMIN K 10 MG in NS 50 ML IV SCH (17:55)
--- NOTE | 2019-01-05 20:27 | EKG Report ---
Test Performed on : 01/05/2019 6:37:57 PM Test Reason : dizziness Blood Pressure : / mmHG Vent. Rate : 088 BPM Atrial Rate : 092 BPM P-R Int : 000 ms QRS Dur : 100 ms QT Int : 358 ms P-R-T Axes : 000 007 165 degrees QTc Int : [address] & T wave abnormality, consider lateral ischemia Abnormal ECG When compared with ECG of 29-Dec-2016 no ventricular pacing is evident Confirmed by Kalpesh FINLEY, Bradley Rendon ([id number]) on 01/17/2019 9:20:45 PM
[2019-01-05 21:19] LABS: HEMATOCRIT 22.9 % (42.0-52.0); HEMOGLOBIN 7.4 g/dL (14.0-18.0); MCH 31.5 PG (27-31); MCHC 32.3 g/dL (33-37); MCV 97.4 FL (81-99); MPV 9.3 FL (7.4-10.4); RBC 2.35 XMIL (4.7-6.1); RDW 12.6 % (11.5-14.5); WBC 8.56 X1000 (4.8-10.8)
--- NOTE | 2019-01-05 22:15 | GASTROENTEROLOGY CONSULTATION ---
DATE: 01/05/2019 REASON FOR CONSULTATION: Gastrointestinal bleed with black stools. HISTORY OF PRESENT ILLNESS: Mr. Leodan Golden is an 83-year-old gentleman with past medical history of hypertension, hyperlipidemia, peripheral vascular disease status post right CEA, atrial fibrillation on Xarelto, status post pacemaker, remote history of prostate cancer, hiatal hernia status post repair in the remote past, GERD, history of colonic polyps who presents with 7 days of diarrhea with black coffee-ground stools. The patient says that about 7 days ago he developed diarrhea after taking some TheraFlu for a sinus infection. He subsequently has had 2 to 3 stools per day that are loose and black in coloration. Over the last couple of days, his stools have become more light and red. He denies any lower abdominal pain. He does report intermittent epigastric burning that has been more frequent recently requiring antacid use. He does say that his burning is worse when he drinks Coke or coffee and when his weight is increased. He does note some lightheadedness, generalized fatigue and mild nausea without any vomiting. His last colonoscopy was about 10 years ago at which point, some small polyps were removed. He cannot recall when his last upper endoscopy was done. REVIEW OF SYSTEMS: As per HPI, otherwise 12 point review of systems is negative. PAST MEDICAL HISTORY: Includes atrial fibrillation, peripheral vascular disease, hypertension, hyperlipidemia, history of prostate cancer, colonic polyps, hyperlipidemia and hypertension. PAST SURGICAL HISTORY: Prostatectomy, pacemaker placement, right CEA, hiatal hernia repair, prior TURP. MEDICATIONS: Include Cipro, Xarelto, metoprolol, Zetia. ALLERGIES: No known drug allergies, although in the chart, promethazine is listed. SOCIAL HISTORY: Remote smoker. He drinks 1 to 2 glasses of wine per night to help him sleep. No drug use. FAMILY HISTORY: No family history of GI malignancies. PHYSICAL EXAMINATION: Vital Signs: Temperature is 98.6 degrees, heart rate 103, respiratory rate 18, blood pressure 143/98, O2 saturation 90% on room air. General: Patient is awake, alert, oriented in no acute distress, pleasant. HEENT: Sclerae anicteric. Moist mucous membranes. Neck: Supple. No JVD. Cardiac: Regular rate and rhythm. No murmurs. Lungs: Clear to auscultation bilaterally. No wheezing. Abdomen: Soft, nontender, nondistended. Normoactive bowel sounds. No rebound or guarding. Extremities: No clubbing, cyanosis, or edema. Neurologic: Nonfocal. LABORATORY DATA: White count of 8.0, hemoglobin 8.7 from mid 12 on 12/28/2018 as an outpatient. Platelets are 384. INR is 3.02. Sodium is 141, potassium 4.8, chloride 107, bicarb 21, BUN of 25, creatinine 1.1, glucose of 137. LFTs are within normal limits. ProBNP of 1299, total protein of 5.4, albumin 3.4. UA is unremarkable. IMAGING: Chest x-ray shows cardiomegaly, probable mild pulmonary fibrosis. ASSESSMENT AND PLAN: Mr. Leodan Golden is an 83-year-old gentleman with past medical history of atrial fibrillation on Xarelto, remote history of colonic polyps, GERD with hiatal hernia repair in the past, who presents with 1 week of diarrhea with coffee-ground stools. The patient has had acute worsening of anemia with a hemoglobin and hematocrit dropping from around 12.5 to 8.7 in 7 days. The differential includes brisk upper GI bleeding versus diverticular bleed. Other etiologies include arteriovenous malformations, colonic polyps, cannot rule out malignancy. We will keep him on clear liquid diet for now. In the setting of his elevated INR 3.0, we will hold off on diagnostic EGD for now unless he acutely worsens. We will continue fluid resuscitation. Maintain 2 large-bore peripheral IVs. Type and cross packed red blood cells. Continue to trend his hemoglobin and hematocrit every 8 to 12 hours. His abdomen is benign. Does not appear to have any signs of ischemia. We will give him vitamin K 10 IV x3 days to reverse his INR. # GI bleed # Anemia # GERD # History hiatal hernia repair # Coagulopathy Thank you for this consult. We will follow with you. Please call with any questions or concerns. [facility]
--- NOTE | 2019-01-05 22:27 | HISTORY AND PHYSICAL ---
ADDENDUM: I saw the patient [id number] and fully agreed with the treatment and assessment plan for this patient by nurse practitioner, Maria Ines Blevins. This is an 83-year-old gentleman who is here because of symptomatic anemia with bloody stools for the past 10 days. He has been on Xarelto for chronic atrial fibrillation that has been held. His hemoglobin and hematocrit are low at 8.7 and 26.4. We will monitor his hemoglobin and hematocrit and give him packed red blood cell transfusion if needed. Furthermore, we have initiated him on proton pump inhibitors intravenously and will request a GI consultation to further assist us in taking care of this very nice gentleman. I believe he needs to have a Watchman procedure once he is discharged from the hospital and stay away from Xarelto because of GI bleed. cc: Wade Rivas MD
--- NOTE | 2019-01-05 22:38 | HISTORY AND PHYSICAL ---
ATTENDING PHYSICIAN: Wade Rivas MD. CHIEF COMPLAINT: Dizziness, blood in his stool. 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 He presents to the emergency room complaining of 10 days of generalized weakness, melena. Over the last 2 to 3 days he has began to have some dizziness with standing, which increased during the night and up into the morning, prompting his emergency room evaluation. He was found to have a hemoglobin of 8.7, hematocrit of 26.4. Of note, the patient continues on Xarelto. PAST MEDICAL HISTORY: 1. Chronic atrial fibrillation, currently on Xarelto. 2. Status post pacemaker placement. 3. Systolic heart failure with an ejection fraction of 30 to 35 percent. 4. 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 5. Prostate cancer. PAST SURGICAL HISTORY: 1. Right carotid endarterectomy with patch angioplasty secondary to high-grade symptomatic right internal carotid stenosis. 2. Pacemaker placement. 3. Cataract removal. 4. Hiatal hernia repair. 5. Prostatectomy. SOCIAL HISTORY: He drinks a glass of wine at night. He denies any illicit drug use. He does not smoke. ALLERGIES: Phenergan, which causes unknown reaction. HOME MEDICATIONS: 1. Xarelto 20 mg p.o. with supper. 2. Metoprolol 25 mg p.o. b.i.d. 3. Zetia 1 tablet daily. REVIEW OF SYSTEMS: Discussed with the patient with pertinent positives stated in the HPI. He denied any syncope, any chest pain or palpitations, any shortness of breath, cough, PND, orthopnea, hemoptysis, any nausea, vomiting, diarrhea, constipation, black or bloody vomitus, any hematuria, dysuria, frequency, urgency. PHYSICAL EXAMINATION: GENERAL: This is an 83-year-old gentleman who is sitting up on the stretcher in the ER in no distress. VITAL SIGNS: Blood pressure is 138/82, with heart rate of 93, respirations are 19, temperature is 98.6 degrees oral with O2 saturations that are 96 to 98 percent on room air. HEENT: Head is normocephalic, atraumatic. Mucous membranes are moist. NECK: Supple. Trachea midline. No JVD. CARDIOVASCULAR: Regular rate and rhythm. S1 and S2 appreciated. No murmur. He has no lower extremity edema. Peripheral pulses are palpable x4 extremities. The calves are nontender bilateral. PULMONARY: Breath sounds are clear. No increased work of breathing noted. Chest rises and falls symmetric to respiration. GASTROINTESTINAL: Soft, nontender, nondistended. Bowel sounds in all 4 quadrants. GENITOURINARY: No CVA nor suprapubic tenderness. NEUROLOGIC: He is alert and oriented x3. SKIN: Warm and dry. LABS: WBC is 8 with hemoglobin 8.7, hematocrit 26.4, platelets of 384,000. Sodium 141, potassium 4.8, BUN 25, creatinine 1.1. Glucose of 137. Troponin is negative. Urinalysis is essentially negative. Stool for occult blood was positive. Chest x-ray reveals cardiomegaly, probable mild pulmonary fibrosis. ASSESSMENT AND PLAN: 1. Gastrointestinal bleed in a patient with chronic anticoagulation. 2. Atrial fibrillation on chronic anticoagulation. 3. Hypertension. 4. Chronic systolic heart failure. 5. Status post subacute infarct of the right parietal lobe with mild left-sided hemiparesis in a patient who is status post right carotid endarterectomy with patch angioplasty secondary to high-grade stenosis. PLAN: The patient will be admitted to the hospital. He will be placed on telemetry. CBC at 9 p.m. tonight and CBC in the morning. consult Gastroenterology. NPO after midnight. daily weights and strict intake and outputs CBC, CMP, and PT/INR in the morning. Protonix drip. We will hold his home medications at present DVT prophylaxis we will use SCDs. Plan discussed with Dr Rivas. Further treatments pending hospital course. Dictated by HILARIO Robles for Wade Rivas MD cc: HILARIO Robles MD [facility]
[2019-01-06] MEDS: PROTONIX 80 MG in NS 80 ML IV SCH ×2 (00:05→09:36)
[2019-01-06 07:14] LABS: INR 2.05; PROTIME 23.6 Seconds (11.0-16.0)
[2019-01-06 07:22] LABS: RBC 2.26 XMIL (4.7-6.1); WBC 7.85 X1000 (4.8-10.8)
[2019-01-06 07:23] LABS: BASO# 0.04 X1000 (0.0-0.2); BASO% 0.5 % (0.0-0.8); EOS# 0.17 X1000 (0.0-0.7); EOS% 2.2 % (0.0-10.0); HEMATOCRIT 21.5 % (42.0-52.0); HEMOGLOBIN 6.8 g/dL (14.0-18.0); LYMPH# 1.09 X1000 (1.2-3.4); LYMPH% 13.9 % (20.5-51.1); MCH 30.1 PG (27-31); MCHC 31.6 g/dL (33-37); MCV 95.1 FL (81-99); MONO# 0.41 X1000 (0.11-0.59); MONO% 5.2 % (1.7-9.3); MPV 9.5 FL (7.4-10.4); NEUT# 6.14 X1000 (1.4-6.5); NEUT% 78.2 % (42.2-75.2); PLT 355 X1000 (130-400); RDW 12.4 % (11.5-14.5)
[2019-01-06 07:34] LABS: AGAP 8; ALB/GLOB RATIO 1.7; ALBUMIN 3.1 g/dL (3.5-5.0); ALKALINE PHOSPHATASE 52 U/L (32-122); BUN 25 mg/dL (8-22); CHLORIDE 111 mmol/L (98-107); COSMO 288; CREATININE 1.1 mg/dL (0.7-1.2); ESTIMATED GFR > 60; GLUCOSE 103 mg/dL (70-104); GOT 14 U/L (10-34); GPT 8 U/L (10-44); POTASSIUM 4.9 mmol/L (3.5-5.1); SODIUM 142 mmol/L (136-145); TCO2 23 mmol/L (25-35); TOTAL PROTEIN 4.9 g/dL (6.3-8.3)
[2019-01-06] MEDS ORDERED: SODIUM CHLORIDE 0.9% 10 ML ONE ×2 (10:15→14:56)
[2019-01-06] MEDS ORDERED: NS 500 ML IV ONE (10:43)
[2019-01-06] MEDS: PROTONIX IV SCH (15:44)
[2019-01-06] MEDS: VITAMIN K 10 MG in NS 50 ML IV SCH (15:44)
[2019-01-06] MEDS ORDERED: GOLYTELY PO ONE (16:00)
--- NOTE | 2019-01-06 17:21 | Diag Imaging Result Doc PS360 ---
CT HEAD W/O CONTRAST - 01/06/2019 INDICATION: Rule Out Stroke COMPARISON: 12/31/2016 FINDINGS: Stable old stroke in the left cerebellar hemisphere. Stable atrophy and chronic microvascular disease. Stable old lacunar in the marcial. No intracranial mass or hemorrhage. The skull is intact. The sinuses, mastoids, and middle ears are clear. IMPRESSION: No acute process. This exam was performed using automated exposure control, adjustment of mA or kV according to patient size, and/or use of iterative reconstruction technique Electronically signed by Rfaael Phillips 01/06/2019 5:19 PM
--- NOTE | 2019-01-06 18:33 | PROGRESS NOTE ---
DATE: 01/06/2019 SUBJECTIVE: The patient is resting comfortably in bed. No acute events noted overnight. He is currently receiving a blood transfusion. He does complain of maroon-colored stools. OBJECTIVE: Vital Signs: Temperature 97.3 degrees, blood pressure 141/58, heart rate 58, respirations 18, O2 saturation is 100% on room air. General: This is a chronically ill- appearing, elderly male, lying in bed in no acute distress. Heart: S1, S2 normal. Regular rate and rhythm. Lungs: Clear to auscultation bilaterally. Abdomen: Positive bowel sounds. Soft, nontender, nondistended. Extremities: No edema. No cyanosis. Neurologic: The patient is alert and oriented x4. LABORATORY DATA: White blood cell count 7.8, hemoglobin 6.8, hematocrit 21, platelets 355,000. INR 2. Sodium 142, potassium 4.9, chloride 111, CO2 of 23, BUN 25, creatinine 1.1, glucose 103. AST 14, ALT 8, alkaline phosphatase 52. ASSESSMENT AND PLAN: 1. Gastrointestinal bleed. The patient will receive 1 unit of packed red blood cells today. He is scheduled for EGD and colonoscopy tomorrow. 2. Chronic atrial fibrillation. The patient's anticoagulation is on hold due to the GI bleed. We will continue to monitor the patient on telemetry. 3. Chronic systolic congestive heart failure. Stable. 4. History of stroke. Aware. 5. History of prostate cancer status post prostatectomy. Aware. 6. Anemia of acute blood loss. The patient will receive 1 unit of packed red blood cells today. 7. Disposition. The patient will receive vitamin K today to reverse his INR in anticipation of the endoscopy planned for tomorrow. cc: Bella Manzanares MD [facility]
[2019-01-06 19:04] LABS: HEMATOCRIT 25.2 % (42.0-52.0); HEMOGLOBIN 8.5 g/dL (14.0-18.0)
--- NOTE | 2019-01-06 22:21 | PROVIDER PROGRESS NOTE ---
Progress Note S: Patient reports continued rectal bleeding with dark red stools. Last this morning. He says the frequency and amount has decreased. His epigastric pain has improved. He denies N/V, abdominal pain, CP, or SOB. O: Last Vital Signs Temp 98.6 F 01/06/19 18:38 Pulse 88 01/06/19 18:38 Resp 16 01/06/19 18:38 BP 140/71 01/06/19 18:38 Pulse Ox 100 01/06/19 18:38 Height 5 ft 8 in Weight 197 lb 4.8 oz GEN: awake, alert, NAD HEENT: anicteric, MMM NECK: supple, no JVD PULM: CTAB, no wheezing ABD: soft NT/ND, NABS, no rebound or guarding EXT: no cce, WWP NEURO: nonfocal LABS: 01/06/19 01/06/19 01/06/19 06:23 06:23 06:23 WBC 7.85 Hgb 6.8 L Plt Count 355 INR 2.05 D Sodium 142 Potassium 4.9 Chloride 111 H Carbon Dioxide 23 L BUN 25 H Creatinine 1.1 Total Bilirubin 0.70 AST 14 ALT 8 L Alkaline Phosphatase 52 Total Protein 4.9 L Albumin 3.1 L ASSESSMENT AND PLAN: Mr. Leodan Golden is an 83-year-old gentleman with atrial fibrillation on Xarelto, remote history of colonic polyps, GERD, remote hiatal hernia repair who presents with hematochezia with coffee ground and dark red stools. His GI bleed is likely diverticular. However, he reports intermittent dyspepsia-like symptoms recently raising concern for PUD. Hgb 6.8 and INR 2.0 this AM. Will transfuse 1-2 units pRBC today and plan for diagnostic EGD and colonoscopy tomorrow. Other etiologies include AVM, polyps, colitis; cannot rule out malignancy. Will continue PPI IV BID, trending H/H, continue vitamin K, avoiding blood thinners, prep with 4L golytely and keep NPO after MN for diagnostic EGD and colonoscopy. # Hematochezia/melena # Anemia # Afib # GERD # Epigastric pain # Coagulopathy Will follow with you. Please call with questions.
[2019-01-07] MEDS: PROTONIX IV SCH ×2 (01:37→13:41)
[2019-01-07 07:00] LABS: INR 1.32; PROTIME 16.6 Seconds (11.0-16.0)
[2019-01-07 07:05] LABS: HEMATOCRIT 22.2 % (42.0-52.0); HEMOGLOBIN 7.3 g/dL (14.0-18.0); MCH 30.7 PG (27-31); MCHC 32.9 g/dL (33-37); MCV 93.3 FL (81-99); MPV 9.2 FL (7.4-10.4); RBC 2.38 XMIL (4.7-6.1); RDW 13.2 % (11.5-14.5); WBC 6.9 X1000 (4.8-10.8)
[2019-01-07 07:43] LABS: AGAP 9; BUN 20 mg/dL (8-22); CHLORIDE 111 mmol/L (98-107); COSMO 289; ESTIMATED GFR > 60; GLUCOSE 94 mg/dL (70-104); SODIUM 144 mmol/L (136-145); TCO2 24 mmol/L (25-35)
[2019-01-07] MEDS ORDERED: NS 500 ML IV ONE (08:45)
[2019-01-07] MEDS ORDERED: NEO-SYNEPHRINE ONE (09:00)
[2019-01-07] MEDS ORDERED: STERILE WATER INJ. ONE (09:00)
[2019-01-07] MEDS ORDERED: XYLOCAINE-MPF 2% ONE (09:00)
[2019-01-07] MEDS ORDERED: AMIDATE ONE (09:00)
[2019-01-07] MEDS ORDERED: SODIUM CHLORIDE 0.9% 10 ML ONE (10:36)
--- NOTE | 2019-01-07 11:12 | ENDOSCOPY OPERATIVE NOTE ---
[facility] ENDOSCOPY OPERATIVE NOTE , PATIENT: Leodan Golden ADMISSION DATE: 01/07/2019 MR#: [id number] : 1935 EGD PROCEDURE REPORT PROCEDURE DATE: 01/07/2019 SURGEON: Gael Stinson MD STATUS: inpatient RESEARCH SCIENTIST: PREOPERATIVE DIAGNOSIS: The patient is a 83 yr old male here for an EGD due to epigastric abdominal pain and hematochezia. PROCEDURE PERFORMED: EGD w/ biopsy MEDICATIONS: Per Anesthesia TOPICAL ANESTHETIC: none CONSENT: The patient understands the risks and benefits of the procedure and understands that these r isks include, but are not limited to: sedation, allergic reaction, infection, perforation and/or bleeding. Alternative means of evaluation and treatment include, among others: physical exam, x-rays, and/or surgical intervention. The patient elects to proceed with this endoscopic procedure. HISORY AND PHYSICAL: 01/07/2019 function. Hand hygiene and appropriate measures for infection prevention was taken. After the risks, benefits and alternatives of the procedure were thoroughly explained, Informed consent was verified, confirmed and timeout was successfully executed by the treatment team. The patient was anesthetized with topical anesthesia and the [id number] ([id number]) endoscope was introduced through the mouth and advanced to the second portion of the duoden um. Retroflexion was performed in the stomach and revealed no abnormalities. The gastroscope was then slowly withdraw n and removed. ESOPHAGUS: Few whitish flecks in the distal esophagus. Random distal esophageal biospies were obtain ed to rule out Carolyn. The z-line was noted at 38cm from the incisors. The z-line appeared normal. STOMACH: The stomach was normal. A biopsy was performed using cold forceps. Sample sent for histolo gy. DUODENUM: Mild duodenal inflammation was found in the duodenal bulb. SPECIMENS REMOVED: Yes ADVERSE EVENTS: There were no complications. POSTOPERATIVE DIAGNOSIS: 1. Few whitish flecks in the distal esophagus. Random distal esophagea l biospies were obtained to rule out Carolyn 2. The z-line was noted at 38cm from the incisors 3. The stomach was normal; biopsy was performed 4. Duodenal inflammation was found in the duodenal bulb RECOMMENDATIONS: 1. Await biopsy results 2. Continue PPI PO once daily 3. Continue to colonoscopy procedure REPEAT EXAM: Gael Stinson MD eSigned: Gael Stinson MD 01/07/2019 11:12 AM cc: PATIENT NAME: Leodan Golden MR#: [id number]
--- NOTE | 2019-01-07 11:17 | ENDOSCOPY OPERATIVE NOTE ---
[facility] ENDOSCOPY OPERATIVE NOTE , PATIENT: Leodan Golden ADM DATE: 01/07/2019 MR #: [id number] : 1935 COLONOSCOPY PROCEDURE REPORT PROCEDURE DATE: 01/07/2019 SURGEON: Gael Stinson MD STATUS: inpatient QUALITY FACILITATOR: PREOPERATIVE DIAGNOSIS: The patient is a 83 yr old male here for a colonoscopy due to hematochezia a nd anemia, non-specific. PROCEDURE PERFORMED: Colonoscopy, diagnostic MEDICATIONS: Per Anesthesia PREP TYPE: GoLytely
[2019-01-07] MEDS: LOPRESSOR PO SCH (13:41)
[2019-01-07] MEDS: VITAMIN K 10 MG in NS 50 ML IV SCH (17:04)
--- NOTE | 2019-01-07 17:45 | PROGRESS NOTE ---
DATE: 01/07/2019 SUBJECTIVE: The patient is resting comfortably in bed. No acute events noted overnight. OBJECTIVE: Vital Signs: Temperature 97.9 degrees, blood pressure 147/86, heart rate 70, respirations 16, O2 saturation is 100% on room air. General: This is a chronically ill- appearing, elderly male lying in bed, in no acute distress. Heart: S1, S2 normal. Regular rate and rhythm. Lungs: Clear to auscultation bilaterally. No wheezing. No rales. No rhonchi. Abdomen: Positive bowel sounds. Soft, nontender, nondistended. Extremities: No edema. No cyanosis. Neurologic: The patient is alert and oriented x4. LABS: White blood cell count 6.9, hemoglobin 7.3, hematocrit 22, platelets 345,000. INR 1.3. Sodium 144, potassium 4, chloride 111, CO2 24, BUN 20, creatinine 1, glucose 94. ASSESSMENT AND PLAN: 1. Gastrointestinal bleed. The patient had an EGD and colonoscopy today that indicated a possible diverticular bleed. We will continue to monitor the patient's hemoglobin and hematocrit closely. The hemoglobin and hematocrit did drop today, so the patient was transfused with 1 unit of packed red blood cells prior to endoscopy today. GI is following. 2. Chronic atrial fibrillation. The patient's anticoagulation remains on hold due to the GI bleed. We will restart the Lopressor and monitor the patient on telemetry. 3. History of cerebrovascular accident. Aware. 4. Deep vein thrombosis prophylaxis. Continue with SCDs. cc: Bella Manzanares MD
[2019-01-07 19:14] LABS: HEMATOCRIT 25.1 % (42.0-52.0); HEMOGLOBIN 8.2 g/dL (14.0-18.0)
[2019-01-08] MEDS: PROTONIX IV SCH ×2 (01:41→14:29)
[2019-01-08 06:43] LABS: AGAP 6; BUN 13 mg/dL (8-22); CALCIUM 9.3 mg/dL (8.8-10.2); CHLORIDE 109 mmol/L (98-107); COSMO 281; ESTIMATED GFR > 60; GLUCOSE 93 mg/dL (70-104); POTASSIUM 3.9 mmol/L (3.5-5.1); SODIUM 141 mmol/L (136-145); TCO2 26 mmol/L (25-35)
[2019-01-08 06:45] LABS: HEMATOCRIT 24.7 % (42.0-52.0); HEMOGLOBIN 8.1 g/dL (14.0-18.0); MCH 31.4 PG (27-31); MCHC 32.8 g/dL (33-37); MCV 95.7 FL (81-99); MPV 9.4 FL (7.4-10.4); RBC 2.58 XMIL (4.7-6.1); RDW 13.3 % (11.5-14.5); WBC 7.06 X1000 (4.8-10.8)
[2019-01-08] MEDS ORDERED: SODIUM CHLORIDE 0.9% 10 ML ONE (08:31)
[2019-01-08] MEDS: LOPRESSOR PO SCH (10:06)
[2019-01-08] MEDS: ICAR-C PO SCH ×2 (10:08→21:02)
[2019-01-08] MEDS: CENTRUM SILVER PO SCH (10:08)
--- NOTE | 2019-01-08 15:47 | PROGRESS NOTE ---
DATE: 01/08/2019 SUBJECTIVE: The patient is resting comfortably in bed. He states that he has not had a bloody bowel movement, and he states that he is hungry and wants some solid food. OBJECTIVE: Vital Signs: Temperature 98.3 degrees, blood pressure 153/78, heart rate 74, respirations 18, O2 saturations 100% on room air. General: This is an elderly male lying in bed in no acute distress. Heart: S1, S2 normal. Regular rate and rhythm. Lungs: Equal air entry bilaterally. No wheezing. No rales. No rhonchi. Abdomen: Positive bowel sounds. Soft, nontender, nondistended. Extremities: No edema. No cyanosis. Neurologic: The patient is alert and oriented x3. LABORATORY DATA: White blood cell count 7, hemoglobin 8.1, hematocrit 24, platelets 325,000. Sodium 141, potassium 3.9, chloride 109, CO2 of 26, BUN 13, creatinine 1, glucose 93. ASSESSMENT AND PLAN: 1. Suspected diverticular bleed. We will continue to monitor the hemoglobin and hematocrit closely. GI is following. 2. Chronic atrial fibrillation. We will continue to hold anticoagulation at this time. Continue on Lopressor. 3. Esophagitis. Continue on PPI therapy. 4. History of cerebrovascular accident. Aware. 5. Deep vein thrombosis prophylaxis. Continue with SCDs. cc: Bella Manzanares MD [facility]
--- NOTE | 2019-01-08 17:34 | GASTROENTEROLOGY PROGRESS NOTE ---
DATE: 01/08/2019 SUBJECTIVE: The patient is currently feeling better. He wants to go home. He denies any nausea or vomiting. He has soft brown stool this morning. He denies any fevers, rigors, or chills. OBJECTIVE: Vital Signs: Temperature 97.7, pulse rate of 95, respiratory rate of 16, blood pressure off 135/81 saturating 100% room air. Body weight of 201 pounds 4 ounces. BMI of 30.6 kg/m2. General Appearance: Moderately built in no acute distress. HEENT: Positive pallor. No icterus. Pupils equal, reactive to light. Neck: Supple. Abdomen: Soft, nontender, nondistended. No guarding. Extremities: No cyanosis, clubbing. Neurologic: Alert, awake, oriented. LABS: EGD report showed evidence of mild esophagitis, rule out Carolyn, and stomach biopsies obtained had mild duodenitis. The colonoscopy report showed severe sigmoid diverticulosis with stigmata of recent bleeding. Normal right colon. Large internal hemorrhoids and nonbleeding, and the likely pathology for GI bleeding was noted to be diverticular bleeding. Hemoglobin and hematocrit today is 8.1 and 24.7, white count of 7.06, platelet count of 325,000. Sodium 141, potassium 3.9, chloride 109, bicarbonate 26, BUN of 13, creatinine 1, glucose of 93, calcium 9.3. IMPRESSION AND PLAN: 1. Gastrointestinal bleeding, likely secondary to diverticular bleeding. He is feeling better. Continue to watch hemoglobin and hematocrit. We will start on iron-C b.i.d., multivitamin once daily for 3 months. 2. Diverticulosis of the colon, severe in the sigmoid colon. Patient avoid excessive corn, nuts, and seeds in diet. Avoid constipation. Take Metamucil once daily. 3. Esophagitis. Follow up the biopsies. He will follow with Dr. Stinson in 1 week after discharge. He will continue on PPIs once daily on discharge for 3 months and then wean down to Zantac 150 mg by mouth twice daily. 4. We can advance his diet today as tolerated. 5. Large hemorrhoids. We will start on Proctosol HC suppository once daily. 6. Chronic atrial fibrillation. His anticoagulation is on hold because of recent gastrointestinal bleeding. If his hematocrit stays stable, then he can restart it on anticoagulation on discharge. 7. History of cerebrovascular accident, aware. 8. Deep vein thrombosis prophylaxis with sequential compression devices and gastrointestinal prophylaxis with proton pump inhibitor. The above plans were discussed with the patient and all questions answered. Please call us with any further questions. Thank you for allowing us to participate in the care of the patient. cc: MD Thiago Scott MD [facility]
[2019-01-08] MEDS ORDERED: ANUSOL-HC CREAM PR SCH (21:00)
[2019-01-08] MEDS: METAMUCIL PO SCH (21:02)
[2019-01-09] MEDS: PROTONIX IV SCH (05:22)
[2019-01-09 06:29] LABS: HEMATOCRIT 26.2 % (42.0-52.0); HEMOGLOBIN 8.5 g/dL (14.0-18.0); MCHC 32.4 g/dL (33-37); MCV 95.6 FL (81-99); MPV 9.1 FL (7.4-10.4); RBC 2.74 XMIL (4.7-6.1); RDW 13.1 % (11.5-14.5); WBC 7.17 X1000 (4.8-10.8)
[2019-01-09 06:34] LABS: AGAP 10; BUN 10 mg/dL (8-22); CALCIUM 9.3 mg/dL (8.8-10.2); CHLORIDE 107 mmol/L (98-107); COSMO 282; CREATININE 0.9 mg/dL (0.7-1.2); ESTIMATED GFR > 60; GLUCOSE 90 mg/dL (70-104); POTASSIUM 4.2 mmol/L (3.5-5.1); SODIUM 142 mmol/L (136-145); TCO2 25 mmol/L (25-35)
[2019-01-09] MEDS: ICAR-C PO SCH (08:24)
[2019-01-09] MEDS: CENTRUM SILVER PO SCH (08:24)
[2019-01-09] MEDS: LOPRESSOR PO SCH (08:24)
[2019-01-09] MEDS: METAMUCIL PO SCH (08:25)
[2019-01-09] MEDS ORDERED: SODIUM CHLORIDE 0.9% 10 ML ONE (11:28)
[2019-01-09 11:43] VITALS: BP 162/86
--- NOTE | 2019-01-09 12:42 | DISCHARGE SUMMARY ---
ADMISSION DATE: 01/05/2019 DISCHARGE DATE: 01/09/2019 HISTORY OF PRESENT ILLNESS: This is a patient of Dr. Thiago Tang. He presented on 01/05/2019 with dizziness, blood in his stool. He is an 83-year-old gentleman with history of atrial fibrillation, chronic anticoagulation, chronic systolic heart failure, and prior subacute infarct in his right parietal lobe with left-sided hemiparesis, who presented to the emergency room after 10 days of generalized weakness, noticed dark stools, black consistent with melena. Over the last 2 to 3 days, he began to have some dizziness on standing, increase during the night and up into the morning, so he came to the emergency room. Hematocrit was 26, hemoglobin was 8.7. PAST MEDICAL HISTORY: 1. Chronic atrial fib, currently on Xarelto. 2. Status post pacemaker placement. 3. Systolic heart failure with ejection fraction last measured at 30 to 35%. 4. Subacute infarct to the right parietal lobe with left hemiparesis. 5. Prostate cancer. PAST SURGICAL HISTORY: 1. Right carotid endarterectomy with patch angioplasty secondary to high-grade symptomatic right internal carotid stenosis. 2. Pacemaker placement. 3. Cataract removal. 4. Hiatal hernia repair. 5. Prostatectomy. ADMISSION DIAGNOSIS: 1. Gastrointestinal bleed on a patient with chronic anticoagulation for atrial fibrillation. 2. Atrial fibrillation on chronic anticoagulation. 3. Hypertension. 4. Chronic systolic heart failure appeared to be compensated. 5. Status post subacute infarct of the right parietal lobe with mild left-sided hemiparesis in a patient who is status post right carotid endarterectomy and has had patch angioplasty secondary to high-grade stenosis. HOSPITAL COURSE: He was admitted to the hospital. He had a head CT done without contrast: No acute process. He had an old stroke, left cerebral hemisphere, stable atrophy and chronic microvascular disease, stable lacunar event in the marcial. No intracranial mass or hemorrhage. Skull intact. Sinuses, mastoid and middle ears were clear. Dr. Stinson was consulted with gastroenterology and had endoscopy on 01/07. Colonoscopy: Old dark red blood. A few clots were found in the left colon. There was severe diverticulosis in the sigmoid colon. No obvious culprit diverticulum was found. No active bleeding seen. Right colon was normal. Large internal hemorrhoids were found. Retroflexion was not performed. Scope otherwise unremarkable. He had an EGD done on 01/07/2019 a few whitish flecks in the distal esophagus. Random distal esophageal biopsies were obtained to rule out Carolyn. The Z-line was at 38 cm from the incisors. Stomach was normal. Biopsy performed. Duodenal inflammation was found in the duodenal bulb, so he was continued on proton pump inhibitors. He had no further bleeding. He was able to eat solid food. He was put on iron C twice a day, multivitamin for 3 months. His diverticulosis was severe in the sigmoid colon. Wanted him to avoid excess corn, nuts and seeds and avoid constipation. So, I recommended Metamucil every day. Esophagitis. Biopsies performed. Continue proton pump inhibitors for 3 months once a day and wean down to Zantac 150 mg by mouth twice a day. Large hemorrhoids. He was put on some Proctosol HC suppositories once a day and try to avoid constipation. His chronic atrial fibrillation rate was controlled. Anticoagulation was on hold, but we will restart his anticoagulation on discharge. Then, a history of cerebrovascular accident with no change. Plan to discharge him on 01/09/2019. DISCHARGE MEDICATIONS: Anusol HC cream. He can apply twice a day to the hemorrhoids. Icar C1 twice a day, Lopressor 20 mg a day, Centrum Silver once a day, Protonix he will take 40 mg p.o. daily and Metamucil 1 scoop twice a day. Follow up with Dr. Tang and he will go back on his anticoagulant. I will instruct him that he can go back on his Zetia once at bedtime and Xarelto he can take 20 mg at supper and recommend he can start that today when he gets home. cc: Tate Ovalle MD
--- NOTE | 2019-01-09 14:38 | PROVIDER PROGRESS NOTE ---
Progress Note S: No acute overnight events. No N/V/F, rectal bleeding, or abdominal pain. Patient tolerating diet. He had brown stool. O: Last Vital Signs Temp 98.6 F 01/09/19 11:42 Pulse 87 01/09/19 11:42 Resp 18 01/09/19 11:42 BP 162/86 01/09/19 11:42 Pulse Ox 100 01/09/19 11:42 Height 5 ft 8 in Weight 201 lb 4 oz GEN: awake, alert, NAD HEENT: anicteric, MMM NECK: supple, no JVD PULM: CTAB, no wheezing ABD: soft NT/ND, NABS EXT: No cce NEURO: nonfocal; ambulatory LABS: 01/09/19 01/09/19 05:15 05:15 WBC 7.17 Hgb 8.5 L Plt Count 352 Sodium 142 Potassium 4.2 Chloride 107 Carbon Dioxide 25 BUN 10 Creatinine 0.9 Glucose 90 EGD 01/07 ESOPHAGUS: Few whitish flecks in the distal esophagus. Random distal esophageal biospies were obtained to rule out Carolyn. The z-line was noted at 38cm from the incisors. The z-line appeared normal. STOMACH: The stomach was normal. A biopsy was performed using cold forceps. Sample sent for histology. DUODENUM: Mild duodenal inflammation was found in the duodenal bulb. Colonoscopy 01/07 POSTOPERATIVE DIAGNOSIS: Severe sigmoid diverticulosis with stigmata recent bleeding Normal right colon Large internal hemorrhoids, non-bleeding A/P: Mr. Leodan Goledn is an 83-year-old gentleman with atrial fibrillation on Xarelto, remote history of colonic polyps, GERD, remote hiatal hernia repair who presented with diverticular bleed. He is doing well without recurrent bleeding. He is being discharged. # Diverticular bleed: high fiber diet, avoid constipation # Afib: on Xarelto # Anemia: stable; no overt bleeding; recommend checking H/H in 4-6 weeks to reassess for improvement # GERD: continue PPI # Internal hemorrhoids: noted Patient discharged today. No GI needs unless patient continues to have epigastric discomfort or burning.
== END 2019-01-09 13:50 | disposition home or self-care (01) | DRG 378 ==
LOC: SUPCPDRO → ED 11:13 → 1N 11:14 → SUATTDRO 11:14
PROVIDERS: ATTEND Emergency Medicine